=== PATIENT | female | born 1955 | race Native Hawaiian/Other Pacific Islander ===

== ENCOUNTER 2021-07-12 15:00 | Emergency (ER) | payer OTHER ==
[~2021-07-12] VITALS: Ht 165.1 cm; Wt 122.5 kg
[2021-07-12 16:21] LABS: PLATELET COUNT 215 K/uL (152-353)
[2021-07-12 17:27] VITALS: BP 147/74; TEMP 98.4
== END 2021-07-12 17:27 | disposition home or self-care (01) ==
LOC: ED 15:00
PROVIDERS: Emergency Medicine Emergency Medical Services
DX: I10 Essential (primary) hypertension (principal)
CPT/HCPCS: 80053; 84484; 85027; 93005; 99283

== ENCOUNTER 2022-02-28 12:48 | Outpatient (CLI) | payer OTHER | END 2022-02-28 19:25 | disposition home or self-care (01) | LOC: US 12:48 | PROVIDERS: ATTEND Nurse Practitioner | DX: R42 Dizziness and giddiness (principal) ==